=== PATIENT | male | born 1950 | race Asian ===

== ENCOUNTER → 2017-02-06 | Outpatient (CLI) | payer OTHER ==
[~2017-02-06] MED LIST: ASPI-556 PO; CLOP75 PO; DOXA4TAB3 PO; LISI1TAB PO; LOVA40TA2 PO; METF500T4 PO; METO50TA5 PO
== END | disposition home or self-care (01) ==
LOC: RADPV 08:23
PROVIDERS: ATTEND Internal Medicine Cardiovascular Disease
DX: I25.10 Atherosclerotic heart disease of native coronary artery without angina pectoris (principal); I08.3 Combined rheumatic disorders of mitral, aortic and tricuspid valves
CPT/HCPCS: 93306

== ENCOUNTER → 2023-09-25 | Outpatient (CLI) | payer MEDICARE, BC ==
[~2023-09-25] VITALS: Ht 170.2 cm; Wt 73.0 kg
[~2023-09-25] MED LIST changes: +ALBU18HF12 IH; +AMLO-142 PO; +CARV25 PO; -CLOP75 PO; +CLOP75TA60 PO; +DAPA10TA PO; +FINA-27 PO; +LEVO2.5S4 PO; +METF-1211 PO; +METF-444 PO; -METF500T4 PO; +METO50TA18 PO; -METO50TA5 PO; +ROSU20TA73 PO; +TAMS0.4C94 PO
[2023-09-25 10:35] VITALS: BP 96/54; PULSE 57; RESP 16; TEMP 98.3; O2SAT 98
== END | disposition home or self-care (01) ==
LOC: SRCNTR 10:17
PROVIDERS: ATTEND Internal Medicine Pulmonary Disease
DX: R06.2 Wheezing (principal); R05.9 Cough, unspecified; I10 Essential (primary) hypertension; E11.9 Type 2 diabetes mellitus without complications
CPT/HCPCS: G0463; Z7500

== ENCOUNTER → 2023-10-24 | Outpatient (CLI) | payer MEDICARE, BC ==
[~2023-10-24] VITALS: Ht 170.2 cm; Wt 74.0 kg
[~2023-10-24] MED LIST changes: -ASPI-556 PO; -DOXA4TAB3 PO; +FLUT1BLS IH; -LISI1TAB PO; -LOVA40TA2 PO; -METF-444 PO; -METO50TA18 PO
[2023-10-24 10:16] VITALS: BP 100/62; PULSE 54; RESP 18; TEMP 98.2; O2SAT 97
== END | disposition home or self-care (01) ==
LOC: SRCNTR 09:59
PROVIDERS: ATTEND Internal Medicine Pulmonary Disease
DX: R05.8 Other specified cough (principal); R06.2 Wheezing; I10 Essential (primary) hypertension; E11.9 Type 2 diabetes mellitus without complications; Z79.899 Other long term (current) drug therapy; Z88.8 Allergy status to other drugs, medicaments and biological substances; Z82.49 Family history of ischemic heart disease and other diseases of the circulatory system; Z98.890 Other specified postprocedural states
CPT/HCPCS: G0463